=== PATIENT | male | born 1990 ===

== ENCOUNTER 2022-09-04 00:51 | Emergency (ER) | payer SELFPAY ==
[2022-09-04] MEDS ORDERED: droPERidol 5 MG/2 ML SDV IVPUSH ONE (00:58)
[2022-09-04] MEDS ORDERED: Sodium Chloride 0.9% 10 ML Syringe FLUSH PRN (00:59)
[2022-09-04] MEDS ORDERED: Sodium Chloride 0.9% 2.5 ML Syringe FLUSH PRN (00:59)
[2022-09-04] MEDS ORDERED: Naloxone 0.4 MG/ML SDV IVPUSH ONE (01:22)
[2022-09-04 01:44] LABS: BASOPHILS PERCENT AUTO 0.2 % (0.0-1.5); EOSINOPHILS ABSOLUTE AUTO 0.3 K/uL (0.0-0.7); HEMOGLOBIN 14.5 g/dL (13.0-17.0); LYMPHOCYTES ABSOLUTE AUTO 5.4 K/uL (0.6-2.4); LYMPHOCYTES PERCENT AUTO 40.2 % (16.0-40.0); MEAN CORPUSCULAR HEMOGLOBIN 28.9 pg (27.0-32.0); MEAN CORPUSCULAR VOLUME 87.6 fL (80.0-98.0); MONOCYTES ABSOLUTE AUTO 1.4 K/uL (0.0-0.8); NEUTROPHILS ABSOLUTE AUTO 6.4 K/uL (1.4-5.7); NEUTROPHILS PERCENT AUTO 47.6 % (48.0-80.0); NRBC ABSOLUTE 0 K/uL; PLATELET COUNT,PLT 341 K/uL (150-400); RED BLOOD CELL COUNT 5.02 M/uL (4.50-5.90); WHITE BLOOD CELL COUNT,WBC 13.47 K/uL (4.0-11.0)
[2022-09-04 01:47] LABS: BLOOD UREA NITROGEN,BUN 11 mg/dL (7.0-18.0); CALCIUM 9.7 mg/dL (8.5-10.1); CARBON DIOXIDE,CO2 30.2 mmol/L (21.0-32.0); CHLORIDE,CL 99 mmol/L (98-107); CREATININE 1.1 mg/dL (0.8-1.3); GLUCOSE RANDOM 88 mg/dL (74-106); POTASSIUM,K 3.5 mmol/L (3.5-5.1); SODIUM,NA 141 mmol/L (136-148)
[2022-09-04 01:50] LABS: ESTIMATED GFR 91 mL/min (>60); ETHANOL BLOOD MEDICAL < 3.0 mg/dL
== END 2022-09-04 03:18 | disposition home or self-care (01) ==
LOC: MW.ED 00:51
DX: T40.411A Poisoning by fentanyl or fentanyl analogs, accidental (unintentional), initial encounter (principal); F11.23 Opioid dependence with withdrawal
CPT/HCPCS: 36415; 70450; 71045; 80048; 80307; 85025; 93005; 96374; 96375; 99285; J1790; J2310; J3490; 93010